=== PATIENT | female | born 1970 | race Caucasian/White ===

== ENCOUNTER 2020-01-30 10:55 | Outpatient (CLI) | payer OTHER, SELFPAY ==
--- NOTE | ~2020-01-30 | XR_ITS ---
EXAMINATION: XR chest 2V 01/30/2020 11:15 INDICATION: Chronic cough PROCEDURE: 2 view chest COMPARISON: 11/10/2016 FINDINGS: The lungs are clear. The cardiomediastinal silhouette is within normal limits. There are no pleural effusions. There is no pneumothorax suspected. IMPRESSION: 1: NO ACUTE CARDIOPULMONARY DISEASE. Reviewed, dictated and finalized at location B.
== END 2020-01-30 10:56 | disposition home or self-care (01) ==
PROVIDERS: PCP Family Medicine; Visit Provider Internal Medicine Critical Care Medicine
DX: R05 Cough (principal)
CPT/HCPCS: 71046

== ENCOUNTER 2020-02-25 12:43 | Outpatient (CLI) | payer OTHER, SELFPAY ==
--- NOTE | 2020-02-25 13:05 | ECHO_ITS ---
Patient Info Name: Antonette Archer Age: 49 years : 1970 Gender: Female Ht: 63 in Wt: 160 lbs BSA: 1.82 m2 HR: 70 bpm BP: 134 / 68 mmHg Heart Rhythm: Sinus Rhythm Technical Quality: Good Exam Date: 02/25/2020 1:20 PM Exam Location: [facility] Patient Status: Outpatient Admit Date: 02/25/2020 Staff Ordering Physician: Antonette Crews MD Principal Systems Architect: Chandan Nelson RDCS Attending Provider: Antonette Crews MD Referring Physician: Eleonora HANSEN; Exam Type: CA echo doppler color flow Study Info Indications R06.02 - Shortness of breath Complete two-dimensional, color flow and Doppler transthoracic echocardiogram is performed. Strain analysis performed. History/Risk Factors Shortness of breath. Summary 1. Left ventricular chamber dimension is normal. 2. Left ventricular systolic function is normal, estimated at 60-65%. 3. There is mildly increased left ventricular wall thickness. 4. The left ventricular diastolic function is normal. 5. E/e' 6 is not elevated. 6. Global longitudinal strain is mildly abnormal at -16.3%. 7. There is trivial pericardial effusion. Left Ventricle E/e' 6 is not elevated. Global longitudinal strain is mildly abnormal at -16.3%. Left ventricular chamber dimension is normal. Left ventricular systolic function is normal, estimated at 60-65%. There is mildly increased left ventricular wall thickness. The left ventricular diastolic function is normal. Right Ventricle Right ventricular chamber dimension is normal. Right ventricular systolic function is normal. Left Atria Left atrial chamber dimension is normal. Right Atria Right atrial chamber dimension is normal. Aortic Valve The aortic valve is trileaflet. There is no aortic valve stenosis. There is no aortic valve regurgitation. Pulmonic Valve There is no pulmonic regurgitation. Mitral Valve There is no mitral valve stenosis. There is no mitral valve regurgitation. Tricuspid Valve There is no tricuspid valve regurgitation. Pericardium/Pleural There is trivial pericardial effusion. Inferior Vena Cava Normal inferior vena cava with >50% collapse upon inspiration consistent with normal right atrial pressure, 5 mmHg. Aorta The aortic root size at the sinus of Valsalva is normal. Left Ventricular Outflow Tract Name Value Normal LVOT 2D LVOT Diameter 1.8 cm LVOT Doppler LVOT Peak Gradient 4 mmHg LVOT Mean Gradient 2 mmHg LVOT VTI 17 cm LVOT VTI/AV VTI Ratio 0.7 LVOT Stroke Volume 45 ml LVOT CO 3.5 l/min LVOT CI 1.9 l/min/m2 Mitral Valve Name Value Normal MV Doppler MV Decel [place]
--- NOTE | 2020-03-01 15:35 | WPDPFTINT ---
PFT Interpretation PFT Interpretation: DOS: 02/25/2012 REQUESTING: Dr. Crews REASON FOR TESTING: shortness of breath PULMONARY FUNCTION TESTS Results are reliable and reproducible. Spirometry: FEV1 is 95%, FVC is normal at 92%. Normal FEV1%. No change with bronchodilator. Lung volumes: TLC 99%, RV 100%. Air. Airway resistance is normal 125%. Diffusion: DLCO is 78% mildly decreased. Flow volume loop: Lack of a peak of the expiratory limb. IMPRESSION: Normal spirometry and lung volumes with a mild decrease in diffusion. Main finding is a decrease in DLCO which is mild. Clinical correlation is recommended. Antonette Crews MD
--- NOTE | 2020-03-01 15:47 | P.PCNSIX_ITS ---
Six Minute Walk Six Minute Walk: DOS: 02/25/2020 REQUESTING: Dr. Crews REASON FOR TESTING: Shortness of breath SIX MINUTE WALK This test was conducted per ATS guidelines, on room air. Initial saturation was 98%, pulse was 67. The patient walked 1200 ft/ 366 m without stopping. Ending saturation was 92%. Ending heart rate was 95. The wrist oximeter was not working optimally. A ear probe was used due to the patient's dark nail [place]. Distance walked is less than expected for age. IMPRESSION: This walk study shows mild desaturation without silvina hypoxemia. No supplemental oxygen indicated with exertion.
== END 2020-02-25 12:44 | disposition home or self-care (01) ==
PROVIDERS: PCP Family Medicine; Visit Provider Internal Medicine Critical Care Medicine
DX: R06.02 Shortness of breath (principal); R05 Cough
CPT/HCPCS: 93306; 94060; 94726; 94729

== ENCOUNTER 2020-07-19 13:43 | Outpatient (CLI) | payer OTHER, SELFPAY ==
--- NOTE | ~2020-07-19 | CT_ITS ---
EXAMINATION: CT chest high resolution wo ms DATE: 07/19/2020 14:29 INDICATION: Cough TECHNIQUE: Computed tomography (CT) of the chest was performed without intravenous contrast. The dose -length product was 142.66 mGy-cm. Automated exposure control and iterative reconstruction technique were employed. COMPARISON: None FINDINGS: No thoracic lymphadenopathy. Heart size is normal. No significant pleural or pericardial ef fusion. Visualized aspects of the upper abdomen are unremarkable. There is a 4 mm right lower lobe no dule, image 44. There is a 2 mm fissural nodule on the left, image 40. No endobronchial lesions. Ther e is a 4 mm left lower lobe nodule, image 62. There is a 3 mm left lower lobe nodule, image 60. Mild thoracic spondylosis. IMPRESSION: 1. Bilateral pulmonary nodules measuring 4 mm or less, likely benign. Follow-up low dose CT chest in 12 months recommended. Reviewed, dictated and finalized at location A. ECTIONS NURSE
--- NOTE | ~2020-07-19 | NM_ITS ---
EXAMINATION: NM pulmonary perfusion DATE: 07/19/2020 14:27 INDICATION: Shortness of breath. TECHNIQUE: 5.5 mCi Tc-99m MAA was administered intravenously for perfusion images. Scintigraphic ifeanyi ges of the chest were obtained. COMPARISON: Chest 2 views 07/19/2020, chest CT 07/19/2020 FINDINGS: Perfusion images show a moderate-sized defect in posterobasal segment right lower lobe. IMPRESSION: 1. Nondiagnostic (intermediate probability for pulmonary embolism). Reviewed, dictated and finalized at location A. COUNSELOR
--- NOTE | ~2020-07-19 | XR_ITS ---
XR chest 2V DATE: 07/19/2020 14:10 INDICATION: Shortness of breath TECHNIQUE: 2 views COMPARISON: 01/30/2020 PA and lateral chest FINDINGS: Normal heart size. No hilar or mediastinal enlargement. There is mild unfolding of the aort a. No pulmonary infiltrate or consolidation or pulmonary mass lesion is evident. No pleural effusion or pulmonary vascular congestion or pneumothorax. IMPRESSION: No active cardiopulmonary disease Reviewed, dictated and finalized at location B. ORATE RESPONSIBILITY OFFICER
== END 2020-07-19 13:44 | disposition home or self-care (01) ==
PROVIDERS: PCP Family Medicine; Visit Provider Internal Medicine Critical Care Medicine
DX: R05 Cough (principal); R06.02 Shortness of breath; R91.8 Other nonspecific abnormal finding of lung field
CPT/HCPCS: 71046; 71250; 78580; A9540

== ENCOUNTER → 2020-10-09 01:56 | Outpatient (CLI) | payer OTHER, SELFPAY ==
[2020-10-09 20:22] LABS: SARS-CoV-2 RNA PCR Negative
== END ==
PROVIDERS: PCP Family Medicine; Visit Provider Internal Medicine Critical Care Medicine
DX: Z01.812 Encounter for preprocedural laboratory examination (principal); Z20.822 Contact with and (suspected) exposure to COVID-19
CPT/HCPCS: C9803; U0003; U0005

== ENCOUNTER 2020-10-12 01:19 | Day surgery (SDC) | payer OTHER, SELFPAY ==
[2020-09-29 08:18] VITALS: BMI 30.2
[2020-10-12] VITALS (8 sets, daily range): BP systolic 128–143; BP diastolic 65–92; PULSE 62–88; RESP 14–21; TEMP 36.2–36.7; O2SAT 98–100
--- NOTE | 2020-10-12 10:44 | ECG_ITS ---
Measurements Intervals [place] Rate: 70 P: 34 FL: 173 QRS: -7 QRSD: 92 T: 40 QT: 407 QTc: 442 Interpretive Statements SINUS RHYTHM LOW QRS VOLTAGE IN PRECORDIAL LEADS CANNOT RULE OUT SEPTAL INFARCT, AGE INDETERMINATE BASELINE ARTIFACT- I, II, III, AVR, AVL, AVF ABNORMAL ECG Electronically Signed On 10-12-2020 11:28:49 CDT by Duane Lyn D.O.
[2020-10-12] MEDS: LACTATED RINGERS 1,000 ML 150 ML IV CONT (11:24)
[2020-10-12 11:31] LABS: Hematocrit 38.5 % (37.0-47.0); Hemoglobin 13.1 g/dL (12.0-15.0); Mean Corpuscular Hemoglobin 31.6 pg (26-34); Mean Platelet Volume 10.1 fl (7.4-10.4); Platelet Count Result 267 k/mm3 (150-375); Red Blood Count 4.14 M/mm3 (4.2-5.4); Red Cell Distribution Width 12.2 % (11.5-14.5); White Blood Count 4.7 K/mm3 (4.5-10.0)
--- NOTE | 2020-10-12 11:42 | WPDANESEPPF ---
Anes - Initial Pre Proc Eval Procedure: Operation Date: 10/12/20 12:30 Proposed Procedures p Flexible Bronchoscopy With Fluoroscopy - Antonette Crews MD Date/Time: 10/12/20 11:42 Surgeon: Antonette Crews MD Pre Op Diagnosis: Chronic Cough Patient Data Age: 49 Gender: F Height: 5 ft 2 in Weight: 74 kg Last Vital Signs Temp 36.5 C 10/12/20 10:48 Pulse 88 10/12/20 10:48 Resp 18 10/12/20 10:48 BP 138/92 H 10/12/20 10:48 Pulse Ox 99 10/12/20 10:48 Allergies Allergy/AdvReac Type Severity Reaction Status Date / Time No Known Allergies Allergy Verified 10/12/20 10:46 Home Medications Medication Instructions Recorded Confirmed Type escitalopram oxalate 20 mg tablet 20 mg PO DAILY #90 tablet 07/21/19 10/12/20 Rx aspirin 81 mg tablet,delayed 81 mg PO DAILY 08/22/19 10/12/20 History release levonorgestrel 20 mcg/24 hours (6 1 device I-UTERINE ONCE 08/22/19 10/12/20 History yrs) 52 mg intrauterine device multivitamin 1 tablet PO DAILY 08/22/19 10/12/20 History omega-3 fatty acids 1,000 mg 1,000 mg PO DAILY 08/22/19 10/12/20 History capsule amitriptyline 25 mg tablet 25 mg PO QHS 30 Days #30 tablet 09/23/20 10/12/20 Rx amlodipine 10 mg tablet 10 mg PO DAILY #90 tablet 09/24/20 10/12/20 Rx Laboratory Tests 10/12/20 10/12/20 11:16 11:19 WBC 4.7 K/mm3 K/mm3 (4.5-10.0) RBC 4.14 M/mm3 L M/mm3 (4.2-5.4) Hgb 13.1 g/dL g/dL (12.0-15.0) Hct 38.5 % % (37.0-47.0) MCV 93.0 fl fl (80-100) MCH 31.6 pg pg (26-34) MCHC 34.0 g/dl g/dl (32-36) RDW 12.2 % % (11.5-14.5) Plt Count 267 k/mm3 k/mm3 (150-375) MPV 10.1 fl fl (7.4-10.4) Sodium Pending Potassium Pending Chloride Pending Carbon Dioxide Pending Anion Gap Pending BUN Pending Creatinine Pending Estim Creat Clear Calc Pending Estimated GFR Pending Glucose Pending Calcium Pending Total Bilirubin Pending AST Pending ALT Pending Alkaline Phosphatase Pending Total Protein Pending Albumin Pending Patient hx anesthesia problems: none Family hx anesthesia problems: none PMFSH Past Medical History Medical History Allergic rhinitis Chronic cough HTN (hypertension) Shortness of Breath Surgical History Surgical History S/P tubal ligation Family History Family History Grandparent Family history of thyroid disease, Onset Age: 50 Family history of lung cancer Family history of heart disease in male family member before age 55 Father Hypertension Family history of heart disease in male family member before age 55 Mother Hypertension Family history of heart disease in male family member before age 55 Sibling Hypertension Family history of heart disease in male family member before age 55 Sibling Family history of multiple sclerosis Hypertension Father Hypertension Other Asthma Family history of allergic disorder Social History Social History Social History: , lives with , Smoking status: Never smoker Alcohol intake: current Drinks per week: 5 Substance use: never Substance use type: does not use Living arrangements: with family Additional occupation/education comments: 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
== END 2020-10-12 14:20 | disposition home or self-care (01) ==
PROVIDERS: PCP Family Medicine; Visit Provider Internal Medicine Critical Care Medicine
PROC: 0BJ08ZZ Inspection of Tracheobronchial Tree, Via Natural or Artificial Opening Endoscopic (ICD-10-PCS; CPT 31622; principal; 2020-10-12 12:30)
DX: R05 Cough (principal); R91.8 Other nonspecific abnormal finding of lung field; R06.02 Shortness of breath; I10 Essential (primary) hypertension; J30.9 Allergic rhinitis, unspecified; Z80.1 Family history of malignant neoplasm of trachea, bronchus and lung; Z82.49 Family history of ischemic heart disease and other diseases of the circulatory system
CPT/HCPCS: 31622; 36415; 85027; 93005; J0330; J1100; J2405; J2704; J7120

== ENCOUNTER 2020-10-22 09:28 | Outpatient (CLI) | payer OTHER, SELFPAY ==
--- NOTE | ~2020-10-22 | MM_ITS ---
EXAMINATION: MM screening [facility] BI w lillian HISTORY: Screening mammogram TECHNIQUE: Craniocaudal and mediolateral oblique 3-D tomosynthesis images were obtained and synthetic 2-D images were generated. CAD analysis was submitted and interpreted. COMPARISON: 06/24/2019, 11/28/2017, 08/18/2016 bilateral digital screening mammogram examinations BREAST PARENCHYMAL COMPOSITION: There are scattered areas of fibroglandular density. FINDINGS: There is no evidence of suspicious mass, calcification, or architectural distortion to sugg est malignancy in either breast. There has been no suspicious interval change. IMPRESSION: 1. No mammographic evidence of malignancy. 2. Recommend routine screening mammography in one year. BI-RADS Category 1: Negative Reviewed, dictated and finalized at location A.
== END 2020-10-22 09:29 | disposition home or self-care (01) ==
LOC: ANHIMG 09:31
PROVIDERS: PCP Family Medicine; Visit Provider Family Medicine
DX: Z12.31 Encounter for screening mammogram for malignant neoplasm of breast (principal)
CPT/HCPCS: 77063; 77067

== ENCOUNTER 2022-05-05 08:34 | Outpatient (CLI) | payer OTHER, SELFPAY ==
--- NOTE | ~2022-05-05 | MM_ITS ---
EXAMINATION: MM screening [facility] BI w lillian HISTORY: Screening TECHNIQUE: Craniocaudal and mediolateral oblique 3-D tomosynthesis images were obtained and synthetic 2-D images were generated. CAD analysis was submitted and interpreted. COMPARISON: Comparison to multiple prior studies sequentially, with oldest reviewed study dated 09/2011. BREAST PARENCHYMAL COMPOSITION: There are scattered areas of fibroglandular density. FINDINGS: There is no evidence of suspicious mass, calcification, or architectural distortion to sugg est malignancy in either breast. There has been no suspicious interval change. IMPRESSION: 1. No mammographic evidence of malignancy. 2. Recommend routine screening mammography in one year. BI-RADS Category 1: Negative Reviewed, dictated and finalized at location A.
== END 2022-05-05 08:35 | disposition home or self-care (01) ==
LOC: ANHIMG 08:35
PROVIDERS: PCP Family Medicine; Visit Provider Family Medicine
DX: Z12.31 Encounter for screening mammogram for malignant neoplasm of breast (principal)
CPT/HCPCS: 77063; 77067

== ENCOUNTER 2022-12-21 10:17 | Emergency (ER) | payer OTHER, SELFPAY ==
--- NOTE | 2022-12-21 10:36 | ED.URI ---
HPI - URI/Sore Throat General Chief Complaint: Upper Respiratory Infection Stated Complaint: cold symptoms Time Seen by Provider: 12/21/22 10:37 Source: patient Mode of arrival: ambulatory Limitations: no limitations History of Present Illness HPI Narrative: 52 yo F presents with c/o cough, sinus and nasal congestion, scratchy throat for 1 wk. Symptoms started after visiting family in [place]. Some of the family had been sick with similar symptoms and have since taking abx and feeling better. pt using OTC cold and cough medications with no improvement of symptoms. Thinks she may have had fever first day of symptoms. Denies N/v/d. States head feels like in a bubble . All systems reviewed and negative except as noted above. Related Data Home Medications Medication Instructions Recorded Confirmed aspirin 81 mg tablet,delayed 81 mg PO DAILY 08/22/19 12/21/22 release (Adult Low Dose Aspirin) levonorgestrel 21 mcg/24 hours (8 1 device intrauterine ONCE 08/22/19 12/21/22 yrs) 52 mg intrauterine device (Mirena) multivitamin 1 tablet PO DAILY 08/22/19 12/21/22 omega-3 fatty acids 1,000 mg 1,000 mg PO DAILY 08/22/19 08/02/22 capsule (Fish Oil Concentrate) Allergies Allergy/AdvReac Type Severity Reaction Status Date / Time No Known Allergies Allergy Verified 12/21/22 10:43 Review of Systems Review of Systems: CONSTITUTIONAL: Denies fever, chills, or sweats. Reports fatigue. EYES: Denies visual changes, redness, or discharge. ENT: Reports rhinorrhea, congestion, sore throat. Denies otalgia. CARDIOVASCULAR: Denies chest pain, palpitations, or edema. RESPIRATORY: Reports cough. Denies dyspnea. GASTROINTESTINAL: Denies abdominal pain, nausea, vomiting, or diarrhea. GENITOURINARY: Denies dysuria or hematuria. SKIN: Denies rash or itching. MUSCULOSKELETAL: Denies back pain, joint pain, or myalgia. NEUROLOGIC: Denies headache, numbness, or weakness. PSYCHIATRIC: Denies anxiety or depression. All other systems reviewed are negative, except as documented in HPI. [facility] Past Medical History Medical History Allergic rhinitis Chronic cough HTN (hypertension) Shortness of Breath Surgical History Surgical History S/P tubal ligation Family History Family History Grandparent Family history of thyroid disease, Onset Age: 50 Family history of lung cancer Family history of heart disease in male family member before age 55 Father Hypertension Family history of heart disease in male family member before age 55 Mother Hypertension Family history of heart disease in male family member before age 55 Sibling Hypertension Family history of heart disease in male family member before age 55 Sibling Family history of multiple sclerosis Hypertension Father Hypertension Other Asthma Family history of allergic disorder Social History Social History Social History: , lives with , Smoking status: Never smoker Alcohol intake: current Drinks per week: 5 Substance use: never Substance use type: does not use Living arrangements: with family Occupation/Education: occupation Additional occupation/education comments: 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 There is no relevant family history pertinent to the presenting complaint. Exam Narrative: GENERAL: This is a well-nourished, well-developed patient, ill-appearing but in no acute distress. HEAD: normocephalic, atraumatic. EYES: PERRL. Sclera clear/white. Vision is grossly intact. EARS: Exte
[2022-12-21 10:39] VITALS: BP 143/74; PULSE 79; RESP 18; TEMP 37.1; O2SAT 98
== END 2022-12-21 10:52 | disposition home or self-care (01) ==
PROVIDERS: Emergency Provider Nurse Practitioner Family; PCP Family Medicine
DX: J06.9 Acute upper respiratory infection, unspecified (principal); I10 Essential (primary) hypertension; Z79.82 Long term (current) use of aspirin
CPT/HCPCS: 99211; G0463